=== PATIENT | male | born 1955 | race Caucasian/White ===

== ENCOUNTER 2018-06-28 08:22 | Emergency (ER) | payer OTHER ==
[2018-06-28] MEDS ORDERED: ASPIRIN 81 MG CHEWABLE TABLET ONE (08:51)
[2018-06-28 09:00] LABS: Protime INR 1.03
[2018-06-28 09:02] LABS: Absolute Lymphocytes (CBC) 1.9 K/uL (0.7-4.9); Absolute Neutrophil 4.5 K/uL (1.8-8.0); Basophils % 0.7 % (0-1.3); Eosinophils % 2.2 % (0-4.4); Hematocrit 55.3 % (39.6-49.0); Lymphocytes % 24.7 % (15.3-44.8); MPV 8.3 fL (7.6-11.3); Monocytes % 12.7 % (3.3-12.3)
--- NOTE | 2018-06-28 09:09 | RAD REPORT ---
EXAM DESCRIPTION: RAD - Chest Single View - 06/28/2018 9:01 am CLINICAL HISTORY: Shortness of breath COMPARISON: None. TECHNIQUE: AP portable chest image was obtained 0859 hours . FINDINGS: No focal mass or consolidation. Interstitial markings are mildly prominent with the baseli ne for the patient unknown. Body habitus and portable technique accentuate lung markings. Cardiac thi houette is enlarged. There is fullness of the mediastinum believed to be vascular summation. Upper lo be vasculature is mildly prominent. No measurable pleural effusion and no pneumothorax. No acute bony abnormality seen. No acute aortic findings suspected. IMPRESSION: No peripheral mass or consolidation identified. Baseline study shows prominent heart, vasculature and lung markings. A mild failure is suspected.
[2018-06-28 09:22] LABS: ALT/SGPT 30 U/L (12-78); AST/SGOT 22 U/L (15-37); Albumin 3.7 g/dL (3.4-5.0); Alkaline Phosphatase 58 U/L (45-117); BUN Blood Urea Nitrogen 17 mg/dL (7-18); Bicarbonate 28 mmol/L (21-32); Bilirubin Direct 0.2 mg/dL (0-0.2); Bilirubin Total 0.9 mg/dL (0.2-1.0); Glucose Level 86 mg/dL (74-106); Magnesium 2.3 mg/dL (1.8-2.4); NT PRO-BNP 55 pg/mL (<125); Potassium 4.3 mmol/L (3.5-5.1); Protein, Total 7.2 g/dL (6.4-8.2); Sodium Level 141 mmol/L (136-145); Troponin (Emerg Dept Use Only) < 0.02 ng/mL (0.0-0.045)
[2018-06-28 09:44] LABS: Urine Blood TRACE (NEG); Urine Glucose NEGATIVE (NEG); Urine Protein NEGATIVE (NEG)
--- NOTE | 2018-06-28 10:18 | ER ---
Nurse's Notes [facility] Name: Baltazar Sexton Age: 63 yrs Sex: Male : 1955 Arrival Date: 06/28/2018 Time: 08:25 Bed 4 Private MD: None, None Diagnosis: Dyspnea-resolved;Chronic combined systolic (congestive) and diastolic (congestive) heart failure Presentation: 06/28 08:25 Presenting complaint: Patient states: shortness of breath that began this morning. Pt ss reports he CPAP may have malfunctioned last night because he woke up gasping for air. Pt reports that has subsided some, but he still feels short of breath. Also reports he is supposed to be taking a diuretic, but hasn't refilled the prescription in months. Transition of care: patient was not received from another setting of care. Onset of symptoms was June 28, 2018. Risk Assessment: Do you want to hurt yourself or someone else? Patient reports no desire to harm self or others. Initial Sepsis Screen: Does the patient meet any 2 criteria? No. Patient's initial sepsis screen is negative. Does the patient have a suspected source of infection? No. Patient's initial sepsis screen is negative. Care prior to arrival: None. 08:25 Method Of Arrival: Ambulatory ss 08:25 Acuity: AUDRA 3 ss Historical: - Allergies: 08:39 No Known Allergies; ss - PMHx: 08:39 GERD; Hypertension; CHF; Sleep Apnea; ss - Immunization history:: Adult Immunizations up to date. - Social history:: Smoking status: Patient/guardian denies using tobacco. - Ebola Screening: : Patient denies exposure to infectious person Patient denies travel to an Ebola-affected area in the 21 days before illness onset. Screenin:45 Abuse screen: Denies threats or abuse. Denies injuries from another. Nutritional sv screening: No deficits noted. Tuberculosis screening: No symptoms or risk factors identified. Fall Risk None identified. Assessment: 08:45 General: Appears in no apparent distress. comfortable, obese, well developed, Behavior sv is calm, cooperative, appropriate for age. Pain: Denies pain. Neuro: Level of Consciousness is awake, alert, obeys commands, Oriented to person, place, time, situation, Moves all extremities. Full function Gait is steady, Speech is normal. Cardiovascular: Patient's skin is warm and dry. Pulses are 3+ in right brachial artery and left brachial artery Rhythm is sinus rhythm. Respiratory: Airway is patent Respiratory effort is even, unlabored, Respiratory pattern is symmetrical, tachypnea. Respiratory: Reports shortness of breath on exertion. Derm: Skin is pink, warm \T\ dry. 10:54 Reassessment: Patient appears in no apparent distress at this time. Patient and/or hb family updated on plan of care and expected duration. Pain level reassessed. Patient is alert, oriented x 3, equal unlabored respirations, skin warm/dry/pink. Patient denies pain at this time. Patient states feeling better. Patient states symptoms have improved. Vital Signs: 08:39 BP 148 / 92; Pulse 75; Resp 22; Temp 97.6(O); Pulse Ox 96% on R/A; Weight 131.54 kg; ss Height 5 ft. 8 in. (172.72 cm); Pain 0/10; 09:35 BP 129 / 82; Pulse 64; Resp 14; Pulse Ox 95% ; sv 10:00 BP 130 / 95; Pulse 73; Resp 22; Pulse Ox 96% ; sv 10:45 BP 122 / 83; Pulse 70; Resp 17; Temp 98; Pulse Ox 96% ; sv 08:39 Body Mass Index 44.09 (131.54 kg, 172.72 cm) ED Course: 08:25 Patient arrived in ED. mr 08:25 None, None is Private Physician. mr 08:26 [facility] Bush [facility]-C [facility]. kb 08:26 Khris Díaz MD is Attending Physician. kb 08:33 Edith Llanes, RANDY is Primary Nurse. sv 08:37 EKG done, by chief technician. reviewed by Yadi HARTMAN. at1 08:38 Triage completed. ss 08:39 Arm band placed on right wrist. ss 08:45 Initial lab(s) drawn, by mi, sent to lab. Inserted saline lock: 20 gauge in right sv antecubital area, using aseptic technique. Blood collected. Flushed right antecubital with 5 ml normal saline. 08:45 Patient has correct armband on for positive identification. Placed in gown. Bed in low sv position. Call light in reach. Side rails up X 1. case monitor on. Pulse ox on. NIBP on. Door closed. Head of bed elevated. 08:49 Basic Metabolic Panel Sent. sv 08:58 X-ray completed. Portable x-ray completed in exam room. Patient tolerated procedure sw well. 08:59 XRAY Chest (1 view) In Process Unspecified. EDMS 09:00 Patient maintains SpO2 saturation greater than 95% on room air. hb 09:25 Urine collected: clean catch specimen, clear. sv 10:50 IV discontinued, intact, bleeding controlled, No redness/swelling at site. sv 10:54 No provider procedures requiring assistance completed. hb Administered Medications: 08:45 Drug: Aspirin Chewable Tablet 324 mg Route: PO; sv 09:36 Follow up: Response: No adverse reaction sv Outcome: 09:00 Discharged to home ambulatory. hb 09:00 Condition: stable 09:00 Discharge instructions given to patient, Instructed on discharge instructions, follow up and referral plans. Demonstrated understanding of instructions, follow-up care. 10:18 Discharge ordered by . kb 10:56 Patient left the ED. hb Signatures: Dispatcher [employer] EDMT Yadi Bush, SENIOR ART DIRECTOR-C SENIOR ART DIRECTOR-Edith Ga, RN RN sv Destinee Mcintosh mr Kelly Schulte, RN RN ss Tamia Naik, accounting teacher EKG Tat1 Virginia Garcia Heather, RN RN Corrections: (The following items were deleted from the chart) 11:41 09:00 IV discontinued, intact, bleeding controlled, No redness/swelling at site. hb sv
--- NOTE | 2018-06-28 10:19 | EDPHYS ---
Physician Documentation [facility] Name: Baltazar Sexton Age: 63 yrs Sex: Male : 1955 Arrival Date: 06/28/2018 Time: 08:25 Bed 4 Private MD: None, None ED Physician Khris Díaz HPI: 06/28 08:40 This 63 yrs old Male presents to ER via Ambulatory with complaints of Chest kb Tightness, Shortness Of Breath. 08:40 This 63 yrs old Male presents to ER via Ambulatory with complaints of kb Shortness Of Breath. 08:40 The patient has shortness of breath at rest. Onset: The symptoms/episode began/occurred kb this morning. Duration: The symptoms are continuous. The patient's shortness of breath is aggravated by exertion, is alleviated by nothing. Associated signs and symptoms: The patient has no apparent associated signs or symptoms. Severity of symptoms: At their worst the symptoms were mild moderate in the emergency department the symptoms are unchanged. The patient has experienced similar episodes in the past. The patient has not recently seen a physician. Pt states he uses a CPAP at night and it wasn't working right last night (believes it came loose and was leaking). States he woke up gasping for breath. Shortness of breath has gotten better, but been persistent. Went to medical at work and they told him he had to come in to be cleared for duty. Reports he has CHF so he is normally short of breath, just more so today than he is used to. States his conformal pad former (Dr Singer in [facility]) forgot to fill his spirinolactone last time he saw him so he hasn't been taking it for a few months. . Historical: - Allergies: 08:39 No Known Allergies; ss - PMHx: 08:39 GERD; Hypertension; CHF; Sleep Apnea; ss - Immunization history:: Adult Immunizations up to date. - Social history:: Smoking status: Patient/guardian denies using tobacco. - Ebola Screening: : Patient denies exposure to infectious person Patient denies travel to an Ebola-affected area in the 21 days before illness onset. ROS: 08:36 Constitutional: Negative for fever, chills, and weight loss, Cardiovascular: Negative kb for chest pain, palpitations, and edema, Abdomen/GI: Negative for abdominal pain, nausea, vomiting, diarrhea, and constipation, Back: Negative for injury and pain, MS/Extremity: Negative for injury and deformity, Skin: Negative for injury, rash, and discoloration, Neuro: Negative for headache, weakness, numbness, tingling, and seizure. 08:36 Respiratory: Positive for shortness of breath, at rest. Negative for cough, dyspnea on exertion, hemoptysis, orthopnea, pleurisy, sputum production, wheezing. Exam: 08:35 Constitutional: This is a well developed, well nourished patient who is awake, alert, kb and in no acute distress. Head/Face: Normocephalic, atraumatic. Chest/axilla: Normal chest wall appearance and motion. Nontender with no deformity. No lesions are appreciated. Cardiovascular: Regular rate and rhythm with a normal S1 and S2. No gallops, murmurs, or rubs. Normal PMI, no JVD. No pulse deficits. Respiratory: Lungs have equal breath sounds bilaterally, clear to auscultation and percussion. No rales, rhonchi or wheezes noted. No increased work of breathing, no retractions or nasal flaring. Abdomen/GI: Soft, non-tender, with normal bowel sounds. No distension or tympany. No guarding or rebound. No evidence of tenderness throughout. Back: No spinal tenderness. No costovertebral tenderness. Full range of motion. Skin: Warm, dry with normal turgor. Normal color with no rashes, no lesions, and no evidence of cellulitis. MS/ Extremity: Pulses equal, no cyanosis. Neurovascular intact. Full, normal range of motion. Neuro: Awake and alert, GCS 15, oriented to person, place, time, and situation. Cranial nerves II-XII grossly intact. Motor strength 5/5 in all extremities. Sensory grossly intact. Cerebellar exam normal. Normal gait. 08:47 ECG was reviewed by the Attending Physician. kb Vital Signs: 08:39 BP 148 / 92; Pulse 75; Resp 22; Temp 97.6(O); Pulse Ox 96% on R/A; Weight 131.54 kg; ss Height 5 ft. 8 in. (172.72 cm); Pain 0/10; 09:35 BP 129 / 82; Pulse 64; Resp 14; Pulse Ox 95% ; sv 10:00 BP 130 / 95; Pulse 73; Resp 22; Pulse Ox 96% ; sv 10:45 BP 122 / 83; Pulse 70; Resp 17; Temp 98; Pulse Ox 96% ; sv 08:39 Body Mass Index 44.09 (131.54 kg, 172.72 cm) ss MDM: 08:26 Patient medically screened. kb 08:35 Data reviewed: vital signs, nurses notes. Data interpreted: Pulse oximetry: on room air kb is 95 %. Interpretation: acceptable. 08:40 The patient's pulmonary embolism risk score was calculated as follows: No Risks (0 Pts).kb 10:14 Counseling: I had a detailed discussion with the patient and/or guardian regarding: the kb historical points, exam findings, and any diagnostic results supporting the discharge/admit diagnosis, lab results, radiology results, the need for outpatient follow up, a conformal pad former, a family practitioner, to return to the emergency department if symptoms worsen or persist or if there are any questions or concerns that arise at home. ED course: Pt laughing with coworker in room. States he is feeling ok and is ready to go back to work. Educated to follow up with Dr Singer. Pt states he is supposed to call and make a regular appt with him anyway. Pt still denies chest pain. No resp distress noted. No complaints of shortness of breath. . 06/28 08:34 Order name: Basic Metabolic Panel kb 06/28 08:34 Order name: CBC with Diff; Complete Time: 09:12 kb 06/28 08:34 Order name: LFT's; Complete Time: 09:23 kb 06/28 08:34 Order name: Magnesium; Complete Time: 09:23 kb 06/28 08:34 Order name: NT PRO-BNP; Complete Time: 09:23 kb 06/28 08:34 Order name: PT-INR; Complete Time: 09:12 kb 06/28 08:34 Order name: Troponin (emerg Dept Use Only); Complete Time: 09:23 kb 06/28 08:34 Order name: XRAY Chest (1 view); Complete Time: 09:12 kb 06/28 08:34 Order name: EKG; Complete Time: 08:38 kb 06/28 08:34 Order name: Cardiac monitoring; Complete Time: 08:49 kb 06/28 08:34 Order name: EKG - Nurse/Tech; Complete Time: 08:50 kb 06/28 08:38 Order name: Basic Metabolic Panel; Complete Time: 09:23 EDMS 06/28 09:21 Order name: Urine Dipstick--Ancillary (enter results); Complete Time: 09:45 eb 06/28 08:34 Order name: IV Saline Lock; Complete Time: 08:50 kb 06/28 08:34 Order name: Labs collected and sent; Complete Time: 08:49 kb 06/28 08:34 Order name: O2 Per Protocol; Complete Time: 08:49 kb 06/28 08:34 Order name: O2 Sat Monitoring; Complete Time: 08:49 kb 06/28 09:35 Order name: Urine Dipstick-Ancillary (obtain specimen); Complete Time: 09:35 sv EC:47 Rate is 74 beats/min. Rhythm is regular. QRS [place] is Normal. OR interval is normal at kb 190 msec. QRS interval is normal at 156 msec. QT interval is normal at 412 msec. Reviewed by me. Administered Medications: 08:45 Drug: Aspirin Chewable Tablet 324 mg Route: PO; sv 09:36 Follow up: Response: No adverse reaction sv Disposition: 11:58 Co-signature as Attending Physician, Khris Díaz MD I agree with the assessment and kdr plan of care. Disposition: 06/28/18 10:18 Discharged to Home. Impression: Dyspnea - resolved, Chronic combined systolic (congestive) and diastolic (congestive) heart failure. - Condition is Stable. - Discharge Instructions: Shortness of Breath, Atgt-in-Yxol, Heart Failure, [id number]. - Work release form, Medication Reconciliation Form, Thank You Letter, Antibiotic Education, Prescription Opioid Use form. - Follow up: Emergency Department; When: As needed; Reason: Worsening of condition. Follow up: Private Physician; When: 2 - 3 days; Reason: Recheck today's complaints, Continuance of care, Re-evaluation by your physician. Signatures: Dispatcher [facility] Yadi Bush FNP-C FNP-Ckb Verde, Stephanie, RN Khris Richey MD MD [facility] Kelly Schulte RN RN Sandra Rocha RN RN Corrections: (The following items were deleted from the chart) 10:56 10:18 06/28/2018 10:18 Discharged to Home. Impression: Dyspnea - resolved; Chronic hb combined systolic (congestive) and diastolic (congestive) heart failure. Condition is Stable. Forms are Medication Reconciliation Form, Thank You Letter, Antibiotic Education, Prescription Opioid Use. Follow up: Emergency Department; When: As needed; Reason: Worsening of condition. Follow up: Private Physician; When: 2 - 3 days; Reason: Recheck today's complaints, Continuance of care, Re-evaluation by your physician. kb
--- NOTE | 2018-06-28 16:31 | EKG ---
Test Date: 2018-06-28 Test Time: 08:35:07 Room Service Associate: RANDY MEASUREMENT RESULTS: Intervals: Rate: 74 UT: 190 QRSD: 156 QT: 412 QTc: 457 [place]: P: 44 UT: 190 QRS: 41 T: 19 INTERPRETIVE STATEMENTS: Normal sinus rhythm Left bundle branch block Abnormal ECG No previous ECG available for comparison Electronically Signed On 06-28-18 16:30:33 CDT by Martín Li
== END 2018-06-28 10:56 | disposition home or self-care (01) ==
LOC: ER 08:22
DX: I50.42 Chronic combined systolic (congestive) and diastolic (congestive) heart failure (principal); I10 Essential (primary) hypertension; K21.9 Gastro-esophageal reflux disease without esophagitis
CPT/HCPCS: 36415; 71045; 80048; 80076; 81003; 83735; 83880; 84484; 85025; 85610; 93005; 99285